=== PATIENT | female | born 1970 | race Caucasian/White ===

== ENCOUNTER 2017-11-28 15:27 | Emergency (ER) | payer OTHER ==
[~2017-11-28] VITALS: Ht 167.6 cm; Wt 128.0 kg
[2017-11-28 15:49] VITALS: BP 197/92; PULSE 98; RESP 20; TEMP 98.9; O2SAT 98
[2017-11-28] MEDS ORDERED: LORazepam 2 MG/ML VIAL IV PUSH ONE (16:45)
--- NOTE | 2017-11-28 16:51 | PD ---
HPI Chief Complaint: Hypertension Time Seen by Provider: 16:37 Travel History International Travel<30 days: No Contact w/Intl Traveler<30days: No Traveled to known affect area: No History of Present Illness HPI 47-year-old female complains of feeling panicky and shaky. Patient states that she has history of anxiety and has been taking Xanax 0.5 mg daily for the last 9 years. Patient states that she took Xanax this afternoon. Patient started having panicky shaky this afternoon. Patient went to a local urgent care center and blood pressures found to be 174/75. Patient with advised to go the ED for evaluation. Patient states that she has a history of elevated blood pressure in the past however is not on any medication. Patient denies any headache. Patient denies any chest pain or shortness of breath. Patient denies abdominal pain. Patient denies any focal weakness or numbness of the extremity. PFSH Past Medical History ?: Not LMP: 10/18/2017-IRREGULAR PER PT Social History Tobacco Use: No Allergies-Medications (Allergen,Severity, Reaction): Coded Allergies: Penicillins (Verified Allergy, Intermediate, RASH, 11/28/17) Reported Meds & Prescriptions Reported Meds & Active Scripts Active Reported Xanax (Alprazolam) 0.5 Mg Tab 0.5 Mg PO DAILY Review of Systems General / Constitutional: No: Fever Eyes: No: Visual changes HENT: No: Headaches Cardiovascular: No: Chest Pain or Discomfort Respiratory: No: Shortness of Breath Gastrointestinal: No: Abdominal Pain Genitourinary: No: Dysuria Musculoskeletal: No: Pain Skin: No Rash Neurologic: No: Weakness Psychiatric: No: Depression Endocrine: No: Polydipsia Hematologic/Lymphatic: No: Easy Bruising Physical Exam Narrative GENERAL: Well-nourished, well-developed patient. SKIN: Focused skin assessment warm/dry. HEAD: Normocephalic. EYES: No scleral icterus. No injection or drainage. NECK: Supple, trachea midline. No JVD or lymphadenopathy. CARDIOVASCULAR: Regular rate and rhythm without murmurs, gallops, or rubs. RESPIRATORY: Breath sounds equal bilaterally. No accessory muscle use. GASTROINTESTINAL: Abdomen soft, non-tender, nondistended. MUSCULOSKELETAL: No cyanosis, or edema. BACK: Nontender without obvious deformity. No CVA tenderness. Neurologic exam normal. Data Data Last Documented VS Vital Signs Date Time Temp Pulse Resp B/P (MAP) Pulse Ox O2 Delivery O2 Flow Rate FiO2 11/28/17 17:55 90 16 107/70 (82) 97 11/28/17 15:49 98.9 Orders Orders Lorazepam Inj (Ativan Inj) (11/28/17 16:45) Complete Blood Count With Diff (11/28/17 16:46) Basic Metabolic Panel (Bmp) (11/28/17 16:46) Thyroid Stimulating Hormone (11/28/17 16:46) Iv Access Insert/Monitor (11/28/17 16:46) Ecg Monitoring (11/28/17 16:46) Oximetry (11/28/17 16:46) Ed Discharge Order (11/28/17 18:00) Labs Laboratory Tests Test 11/28/17 16:55 White Blood Count 11.6 TH/MM3 Red Blood Count 5.43 MIL/MM3 Hemoglobin 13.0 GM/DL Hematocrit 41.1 % Mean Corpuscular Volume 75.7 FL Mean Corpuscular Hemoglobin 24.0 PG Mean Corpuscular Hemoglobin Concent 31.7 % Red Cell Distribution Width 14.7 % Platelet Count 356 TH/MM3 Mean Platelet Volume 8.4 FL Neutrophils (%) (Auto) 76.1 % Lymphocytes (%) (Auto) 15.3 % Monocytes (%) (Auto) 4.9 % Eosinophils (%) (Auto) 2.0 % Basophils (%) (Auto) 1.7 % Neutrophils # (Auto) 8.8 TH/MM3 Lymphocytes # (Auto) 1.8 TH/MM3 Monocytes # (Auto) 0.6 TH/MM3 Eosinophils # (Auto) 0.2 TH/MM3 Basophils # (Auto) 0.2 TH/MM3 CBC Comment AUTO DIFF Differential Comment AUTO DIFF CONFIRMED Blood Urea Nitrogen 10 MG/DL Creatinine 0.73 MG/DL Random Glucose 116 MG/DL Calcium Level 9.0 MG/DL Sodium Level 137 MEQ/L Potassium Level 3.6 MEQ/L Chloride Level 102 MEQ/L Carbon Dioxide Level 27.0 MEQ/L Anion Gap 8 MEQ/L Estimat Glomerular Filtration Rate 85 ML/MIN Thyroid Stimulating Hormone 3rd Gen 1.740 uIU/ML MDM Medical Decision Making Medical Screen Exam Complete: Yes Emergency Medical Condition: Yes Interpretation(s) 1755 PM. CBC WBC 11.6. Hemoglobin 13.0 hematocrit 41.1. 75.7 MCV. 76 neutrophils. BMP within normal limits. Differential Diagnosis Differential diagnosis including acute anxiety panic attack, new onset hypertension. Narrative Course 47-year-old female feeling shaky panicky. Patient also with seen at local urgent care this afternoon in found to have elevated blood pressure. History of anxiety. Ativan 1 mg IV given. 1759 PM. Recheck blood pressure under control. Diagnosis Primary Impression: Acute anxiety Patient Instructions: General Instructions Additional Instructions: Continue with Xanax as directed. Follow-up with personal physician. Med/Other Pt SpecificInfo: No Change to Meds Disposition: 01 DISCHARGE HOME Condition: Stable Jaswinder Villanueva MD Nov 28, 2017 16:51
[2017-11-28] MEDS ORDERED: ALPR.5 PO (17:11)
[2017-11-28 17:15] LABS: AUTOMATED NEUTROPHIL # 8.8 TH/MM3 (1.8-7.7); BASOPHIL # 0.2 TH/MM3 (0-0.2); BASOPHIL % 1.7 % (0.0-2.0); EOSINOPHIL # 0.2 TH/MM3 (0-0.4); HEMATOCRIT 41.1 % (35.0-46.0); LYMPH % 15.3 % (9.0-44.0); LYMPHOCYTE # 1.8 TH/MM3 (1.0-4.8); MEAN CELL VOLUME 75.7 FL (80.0-100.0); MEAN CORPUSCULAR HGB CONC 31.7 % (32.0-36.0); MEAN PLATELET VOLUME 8.4 FL (7.0-11.0); MONO % 4.9 % (0.0-8.0); MONOCYTE # 0.6 TH/MM3 (0-0.9); NEUT % 76.1 % (16.0-70.0); PLATELET COUNT 356 TH/MM3 (150-450); RED BLOOD COUNT 5.43 MIL/MM3 (4.00-5.30); RED CELL DISTRIBUTION WIDTH 14.7 % (11.6-17.2); WHITE BLOOD COUNT 11.6 TH/MM3 (4.0-11.0)
[2017-11-28 17:31] LABS: CREATININE 0.73 MG/DL (0.50-1.00)
[2017-11-28 17:55] VITALS: BP 107/70
== END 2017-11-28 18:27 | disposition home or self-care (01) ==
LOC: PHED 15:27
DX: F41.8 Other specified anxiety disorders (principal); R03.0 Elevated blood-pressure reading, without diagnosis of hypertension
CPT/HCPCS: 80048; 84443; 85025; 96374; 99284; J2060